=== PATIENT | female | born 1950 | race Caucasian/White ===

== ENCOUNTER 2016-12-11 15:46 | Emergency (ER) | payer MEDICARE ==
[~2016-12-11] VITALS: Ht 157.5 cm; Wt 58.0 kg
[2016-12-11 15:47] VITALS: BP 115/56; PULSE 79; RESP 18; TEMP 97.2; O2SAT 96
[2016-12-11] MEDS ORDERED: LITH300C2 PO (16:21)
[2016-12-11] MEDS ORDERED: RISP2TAB37 PO (16:21)
--- NOTE | 2016-12-11 16:32 | PD ---
HPI Chief Complaint: Pain: Acute or Chronic Time Seen by Provider: 16:31 Travel History International Travel<30 days: No Contact w/Intl Traveler<30days: No Traveled to known affect area: No History of Present Illness HPI 66-year-old female presents to the emergency Department with complaint of pain and swelling to her left medial ankle area 3 days. Denies injury or strain. Denies paresthesias, loss of sensation, decreased range of motion, decreased strength to the affected extremity. Denies fever, chills, nausea, vomiting. Reports being ambulatory on the affected extremity. Has taken ibuprofen with good relief of pain; last took ibuprofen at 11 AM this morning. Reports being up-to-date on her tetanus vaccination. Allergies to penicillin. Primary care provider is [facility] in [place]. History of bipolar disorder and currently takes lithium and Risperdal. Denies history of gout. Denies other significant past medical history. No other modifying factors or associated signs and symptoms. PFSH Past Medical History ?: Not Past Surgical History Hysterectomy: Yes Social History Tobacco Use: No Allergies-Medications (Allergen,Severity, Reaction): Uncoded Allergies: PENICILLAN (Allergy, Severe, SWELLING, 12/11/16) Reported Meds & Prescriptions Reported Meds & Active Scripts Active Folding Walker/5" Wheels (Device) 1 Mis Mis 1 Ea .ROUTE DIRECTED Ibuprofen 800 Mg Tab 800 Mg PO Q8H PRN Clindamycin (Clindamycin HCl) 150 Mg Cap 300 Mg PO Q6H 10 Days Reported Risperdal (Risperidone) 2 Mg Tab 2 Mg PO HS [place] Carbonate 300 Mg Cap 300 Mg PO DAILY Review of Systems Except as stated in HPI: all other systems reviewed are Neg Physical Exam Narrative GENERAL: Well-nourished, well-developed female patient, in no acute distress SKIN: Warm and dry. Left medial ankle with area of erythema, edema and warmth to touch; may be consistent with a cellulitis. No signs of septic joint. HEAD: Atraumatic. Normocephalic. EYES: Pupils equal and round. No scleral icterus. No injection or drainage. ENT: Mucosa pink and moist. Airway patent. NECK: Trachea midline. CARDIOVASCULAR: Regular rate. RESPIRATORY: No accessory muscle use. GASTROINTESTINAL: Flat. MUSCULOSKELETAL: Left ankle with point tenderness to the medial malleolar zone and with edema, erythema, and warmth to touch. No obvious deformity. Left lower extremity supple and non-tense with 2+ pedal pulse and sensory intact. No obvious deformities. No clubbing. No cyanosis. No edema. NEUROLOGICAL: Awake and alert. Oriented 3. No obvious cranial nerve deficits. Motor grossly within normal limits. Normal speech. PSYCHIATRIC: Appropriate mood and affect; insight and judgment normal. Data Data Last Documented VS Vital Signs Date Time Temp Pulse Resp B/P Pulse Ox O2 Delivery O2 Flow Rate FiO2 12/11/16 15:47 97.2 79 18 115/56 96 Room Air Orders Ankle, Complete ([id number]) (12/11/16 16:31) Ibuprofen (Motrin) (12/11/16 16:45) MDM Medical Decision Making Medical Screen Exam Complete: Yes Emergency Medical Condition: Yes Medical Record Reviewed: Yes Differential Diagnosis Cellulitis, gout, ankle sprain Narrative Course 66-year-old female with an area of erythema, edema, and warmth to touch to the medial aspect of her left ankle which may be consistent with cellulitis. No signs of septic joint. She denies injury. Ibuprofen administered in the ER. Left ankle x-ray ordered. 1706: Left ankle x-ray concludes Unremarkable examination of the left ankle. Suspecting cellulitis and will treat the patient accordingly. Area of erythema marked with a surgical marker. Patient allergic to penicillin. Clindamycin and ibuprofen prescribed for home. I offered the patient crutches for support and she declined at this time. A prescription for a walker was provided. Patient verbalizes understanding and agreement with treatment plan. Patient is medically cleared and stable for discharge. Discussed reasons to return to the emergency department. Instructed patient to follow up with primary care provider. Patient agrees with treatment plan. The patients vital signs are stable and the patient is stable for outpatient follow-up and treatment. Patient discharged home, stable and in no acute distress. Diagnosis Primary Impression: Cellulitis of left ankle Referrals: Primary Care Physician Patient Instructions: Cellulitis (ED), General Instructions Additional Instructions: Antibiotics as prescribed and complete full course until they are gone Ibuprofen or Tylenol as directed and as needed for pain and inflammation Rest, ice, compress, and elevate extremity to decrease pain and inflammation Avoid aggravating activity; increase activity as tolerated Follow-up with primary care provider Return to the emergency department immediately with worsening symptoms Med/Other Pt SpecificInfo: Prescription(s) given Scripts Folding Walker/5" Wheels 1 Mis Mis #1 Ea .route As Directed Prov:Jyoti Mathews 12/11/16 Ibuprofen 800 Mg [id number] Mg PO Q8H PRN (PAIN SCALE 1 TO 10) #20 TAB Ref 0 Prov:Jyoti Mathews 12/11/16 Clindamycin 150 Mg [id number] Mg PO Q6H 10 Days Ref 0 Prov:Jyoti Mathews 12/11/16 Disposition: 01 DISCHARGE HOME Condition: Stable Jyoti Mathews Dec 11, 2016 16:32
[2016-12-11] MEDS ORDERED: IBUP800T23 PO (16:38)
[2016-12-11] MEDS ORDERED: CLIN1CAP5 PO (16:38)
[2016-12-11] MEDS ORDERED: MISC-274 (16:44)
[2016-12-11] MEDS ORDERED: IBUPROFEN 800 MG TAB PO ONE (16:45)
--- NOTE | 2016-12-11 16:59 | RADRPT ---
EXAM DATE/TIME: 12/11/2016 16:44 [facility] COMPARISON: No previous studies available for comparison. INDICATIONS : Left ankle pain and swelling with no known injury. MEDICAL HISTORY : None. SURGICAL HISTORY : None. ENCOUNTER: Initial ACUITY: 3 days PAIN SCORE: 6/10 LOCATION: Left medial ankle. FINDINGS: Three view exam was performed of the left ankle. The bony structures are in normal alignment. No ev idence of fracture, dislocation, or soft tissue swelling. The ankle mortise is intact. No radiopaqu e foreign bodies are seen. Bony mineralization is normal. CONCLUSION: Unremarkable examination of the left ankle. Piotr Handy MD on December 11, 2016 at 16:57 Board Certified Radiologist. This report was verified electronically.
== END 2016-12-11 18:15 | disposition home or self-care (01) ==
LOC: NEPB 15:46
DX: L03.116 Cellulitis of left lower limb (principal); Z86.59 Personal history of other mental and behavioral disorders
CPT/HCPCS: 73610; 99283

== ENCOUNTER 2016-12-16 11:36 | Emergency (ER) | payer MEDICARE ==
[~2016-12-16] VITALS: Ht 157.5 cm; Wt 55.0 kg
[~2016-12-16 11:36] MED LIST: CLIN1CAP5 PO; IBUP800T23 PO; LITH300C2 PO; MISC-274; RISP2TAB37 PO
[2016-12-16 11:40] VITALS: BP 112/52; PULSE 68; RESP 14; TEMP 98.2; O2SAT 97
--- NOTE | 2016-12-16 14:36 | PD ---
HPI Chief Complaint: Skin Problem Time Seen by Provider: 14:26 Travel History International Travel<30 days: No Contact w/Intl Traveler<30days: No Traveled to known affect area: No History of Present Illness HPI 66-year-old female presents for evaluation of medial left ankle recheck. For about 10 days she has had some pain and swelling in the medial aspect of the left ankle. She was seen here in December 11 and had a normal x-ray. She was felt to have probable cellulitis and started on clindamycin. She reports no improvement in her symptoms. She says that the swelling and pain is not worse but it is not better. She describes it as an aching pain on the medial aspect of the left ankle that is worse when she ambulates. She does not recall any trauma. Denies any fevers or chills. Denies any puncture wounds. She is currently on vacation from [place]. Denies any calf or thigh pain or swelling. No history of DVT. No other complaints. PFSH Past Medical History Bipolar Disorder: Yes Past Surgical History Hysterectomy: Yes Social History Tobacco Use: Yes Allergies-Medications (Allergen,Severity, Reaction): Uncoded Allergies: PENICILLAN (Allergy, Severe, SWELLING, 12/11/16) Reported Meds & Prescriptions Reported Meds & Active Scripts Active Folding Walker/5" Wheels (Device) 1 Mis Mis 1 Ea .ROUTE DIRECTED Ibuprofen 800 Mg Tab 800 Mg PO Q8H PRN Clindamycin (Clindamycin HCl) 150 Mg Cap 300 Mg PO Q6H 10 Days Reported Risperdal (Risperidone) 2 Mg Tab 2 Mg PO HS [place] Carbonate 300 Mg Cap 300 Mg PO DAILY Review of Systems Except as stated in HPI: all other systems reviewed are Neg Physical Exam Narrative GENERAL: Pleasant well-developed well-nourished female in no acute distress SKIN: Warm and dry. There is an area of ecchymosis around the medial aspect of the left ankle joint with some tenderness to palpation to the medial left ankle joint. There is no erythema or induration or puncture wound noted. HEAD: Atraumatic. Normocephalic. EYES: Pupils equal and round. No scleral icterus. No injection or drainage. ENT: No nasal bleeding or discharge. Mucous membranes pink and moist. NECK: Trachea midline. No JVD. CARDIOVASCULAR: Regular rate and rhythm. No murmur appreciated. RESPIRATORY: No accessory muscle use. Clear to auscultation. Breath sounds equal bilaterally. GASTROINTESTINAL: Abdomen soft, non-tender, nondistended. Hepatic and splenic margins not palpable. MUSCULOSKELETAL: No obvious deformities. Skin as noted above. The patient has some pain with dorsi and plantar flexion of the ankle but she has full range of motion. Pulses, sensation are preserved. No calf or thigh tenderness. NEUROLOGICAL: Awake and alert. No obvious cranial nerve deficits. Motor grossly within normal limits. Normal speech. Data Data Last Documented VS Vital Signs Date Time Temp Pulse Resp B/P Pulse Ox O2 Delivery O2 Flow Rate FiO2 12/16/16 11:40 98.2 68 14 112/52 97 Orders Us Leg Venous Doppler (12/16/16 14:33) Crutches (12/16/16 15:32) MDM Medical Decision Making Medical Screen Exam Complete: Yes Emergency Medical Condition: Yes Medical Record Reviewed: Yes Differential Diagnosis Medial ankle sprain, contusion, DVT, erysipelas, cellulitis Narrative Course 66-year-old female with 10 days of medial left ankle pain and swelling. On examination she has an area of ecchymotic skin to the medial left ankle joint. There is no cellulitic changes and the joint is not warm or effused. She had an x-ray during her last visit which was unremarkable. Her examination is not suggestive of cellulitis. I suspect a mild medial left ankle sprain as the most likely etiology. Ultrasound of the leg was performed and was negative for DVT. Ultrasound is negative. The patient is being discharged with crutches. I did discuss signs and symptoms don't warrant return to the emergency room and she verbalizes understanding. Diagnosis Primary Impression: Sprain of left medial ankle joint Qualified Code: S93.422A - Sprain of left medial ankle joint, initial encounter Additional Instructions: Crutches as needed. Ice pack several times a day 10-15 minutes at a time. Elevate. Return for any new or worsening symptoms. Med/Other Pt SpecificInfo: Orthopedic Instructions Disposition: 01 DISCHARGE HOME Condition: Stable Jerrod Donald Dec 16, 2016 14:36
--- NOTE | 2016-12-16 15:28 | RADRPT ---
EXAM DATE/TIME: 12/16/2016 14:48 [facility] COMPARISON: No previous studies available for comparison. INDICATIONS : Left leg pain. MEDICAL HISTORY : Left leg pain. SURGICAL HISTORY : Hysterectomy. ENCOUNTER: Initial ACUITY: 1 week PAIN SCORE: 2/10 LOCATION: Left leg. TECHNIQUE: Venous ultrasound of the leg was performed from the inguinal ligament to the proximal calf. Real-time, color Doppler and spectral tracing, compression and augmentation techniques were us ed. FINDINGS: There is normal compressibility of the deep venous system from the inguinal region to the proximal ca lf. No echogenic clot is seen in the lumen of the common femoral, femoral, popliteal, and posterior tibial veins. There is a normal response of the venous system to proximal and distal augmentation an d respiration. CONCLUSION: Negative for deep venous thrombosis. Nate Yun MD FACR on December 16, 2016 at 15:26 Board Certified Radiologist. This report was verified electronically.
[2016-12-16 15:40] VITALS: BP 120/68
== END 2016-12-16 16:21 | disposition home or self-care (01) ==
LOC: NETRI 11:36
DX: S93.422A Sprain of deltoid ligament of left ankle, initial encounter (principal); X58.XXXA Exposure to other specified factors, initial encounter
CPT/HCPCS: 93971; 99283; E0113